=== PATIENT | female | born 1960 | race Caucasian/White ===

== ENCOUNTER 2020-07-02 11:15 | Emergency (ER) | payer MEDICAID, SELFPAY ==
[2020-07-02 11:15] VITALS: BP 132/61; PULSE 77; RESP 14; TEMP 36.3; O2SAT 94; BMI 20.9
--- NOTE | 2020-07-02 11:30 | HMH.EDUTC ---
[facility] [place] Impression: Otitis externa Qualifiers: Otitis externa type: unspecified type Chronicity: acute Laterality: left Qualified Code(s): H60.502 - Unspecified acute noninfective otitis externa, left ear Disposition: Home, Self-Care Condition on Discharge: Good Instructions: Otitis Externa, DI for Otitis Externa, How to Use Ear Drops Additional Instructions: Use the ear drops and take the oral antibiotics as directed. Follow up with your primary care physician. Take tylenol or ibuprofen for pain. GO TO THE ER FOR ANY WORSENING SYMPTOMS OR CONCERNS Prescriptions: Amoxicillin/Potassium Clav [Augmentin 875-125 Tablet] 1 tab PO Q12H 10 Days #20 tab Transmission Status: Received by [facility] Neomycin/Polymyxin B Sulf/Hc [Hjmdjvwt-Hfopnargk-BU Otic Susp 10mL] 3 drops EAR-RIGHT TID 7 Days #1 bottle Transmission Status: Received by [facility] Referrals: PCP,No [Primary Care Provider] - Time of Disposition: 11:37 Medical Decision Making - Medical Records Medical records reviewed: No: I reviewed the patient's medical records. - Francisco Inquiry Pt receiving controlled substance: No Vital Signs: 07/02/20 11:15 Temperature 97.3 F L Temperature Source Oral Pulse Rate [Right] 77 Respiratory Rate 14 Blood Pressure [Right Arm] 132/61 Blood Pressure Mean [Right Arm] 84 02 Sat by Pulse Oximetry 94 L [facility] [place] [place] - General Stated complaint: ear pain Time Seen by Provider: 07/02/20 11:31 - History of Present Illness Provider Complaint: She complains of right ear pain for the past 2 days. She denies any fever, chills, congestion and other symptoms. - Related Data Previous Rx's Medication Instructions Recorded Amoxicillin/Potassium Clav 1 tab PO Q12H 10 Days #20 tab 07/02/20 [Augmentin 875-125 Tablet] Neomycin/Polymyxin B Sulf/Hc 3 drops EAR-RIGHT TID 7 Days #1 07/02/20 [Gyenkens-Cnxbxkzez-DH Otic Susp bottle 10mL] Allergies Allergy/AdvReac Type Severity Reaction Status Date / Time No Known Allergies Allergy Verified 07/02/20 11:32 [facility] History - Hepatitis A Screen Attestation statement:: This patient has been screened for Hepatitis A risk factors. I have reviewed the patient's past medical history: Yes ROS Obtained: Yes All systems reviewed & no additional complaints - Constitutional Constitutional: Denies chills, Denies fever(s), Denies poor appetite, Reports malaise - Eyes Eyes: Denies eye discharge - ENT Ears, Nose, Mouth, and Throat: Reports as per HPI - Cardiovascular Cardiovascular: Denies chest pain - Respiratory Respiratory: Denies chest congestion, Denies cough - Gastrointestinal Gastrointestingal: Denies: abdominal pain, diarrhea, nausea, vomiting Physical Exam - General General appearance: alert, in no apparent distress - Head Head exam: atraumatic, normocephalic, normal inspection - Eye Eye exam: Present: normal appearance, PERRL, EOMI - ENT ENT exam: Present: mucous membranes moist, normal external ear exam - Expanded ENT Exam TM/Canal exam: Left TM: erythema, canal discharge, canal tenderness Mouth exam: Present: normal external inspection Teeth exam: Present: normal inspection Throat exam: Present: normal inspection - Neck Neck exam: Present: normal inspection, full ROM, trachea midline. Absent: meningismus, lymphadenopathy - Chest Chest inspection: Present: normal inspection, symmetric chest wall rise. Absent: tenderness - Respiratory Respiratory exam: Present: normal lung sounds bilaterally. Absent: respiratory distress - Cardiovascular Cardiovascular exam: Present: regular rate, normal rhythm. Absent: JVD - Abdominal Exam Abdominal exam: Present: soft, normal bowel sounds. Absent: distention, tenderness, guarding - Extremities Exam Extremities exam: Present: normal inspection, full ROM, normal capillary refill. Absent: calf tenderness - Back Exam Back exam: Present:
[2020-07-02 11:42] VITALS: BP 132/61; PULSE 77; RESP 14; TEMP 36.3; O2SAT 94
== END 2020-07-02 11:43 | disposition home or self-care (01) ==
PROVIDERS: Emergency Provider Nurse Practitioner Family
DX: H60.502 Unspecified acute noninfective otitis externa, left ear (principal)
CPT/HCPCS: 99202; G0463

== ENCOUNTER 2020-07-16 13:25 | Emergency (ER) | payer MEDICAID, SELFPAY ==
[2020-07-16 13:40] VITALS: BP 125/67; PULSE 68; RESP 20; TEMP 36.6; O2SAT 98; BMI 21.7
[2020-07-16 14:05] LABS: Apearance,Urine Clear (Clear); Color,Urine Yellow (Yellow)
[2020-07-16 14:06] LABS: Bilirubin,Urine Negative (Negative); Blood, Urine Negative (Negative); Glucose,Urine (UA) Negative (Negative); Ketones,Urine Negative (Negative); Protein,Urine Negative (Negative); UTC Leukocyte Esterase,Urine Negative (Negative); UTC Nitrate,Urine Negative (Negative); Urobilinogen,Urine 0.2 EU/dl (0.2)
--- NOTE | 2020-07-16 14:21 | HMH.EDUTC ---
[facility] [place] Clinical Impression: Yeast infection Disposition: Home, Self-Care Condition on Discharge: Good Instructions: Vaginal Yeast Infection, DI for Vaginal Yeast Infection Additional Instructions: Take the medication as directed. Use the topical medication as directed. Follow up with your primary care doctor. GO TO THE ER FOR ANY WORSENING SYMPTOMS Prescriptions: Fluconazole [Diflucan 150mg tab] 150 mg PO ONCE #1 tab Transmission Status: Received by [email or web address] Nystatin [Nystatin Cr 100,000 Units/GM 30GM] 1 applicatio TP BID 14 Days #1 tube Transmission Status: Received by [facility] Referrals: PCP,No [Primary Care Provider] - Time of Disposition: 14:24 Medical Decision Making - Medical Records Medical records reviewed: No: I reviewed the patient's medical records. - Francisco Inquiry Pt receiving controlled substance: No Vital Signs: 07/16/20 13:40 07/16/20 14:28 Temperature 97.8 F 97.8 F Temperature Source Temporal Artery Scan Pulse Rate 68 Pulse Rate [Right Brachial] 68 Respiratory Rate 20 20 Blood Pressure 125/67 Blood Pressure [Right Arm] 125/67 Blood Pressure Mean [Right Arm] 86 Blood Pressure Source [Right Arm] Automatic Cuff 02 Sat by Pulse Oximetry 98 Oxygen Delivery Method Room Air - Lab Data Lab Results 07/16/20 14:04: Urine Color Yellow, Urine Appearance Clear, Urine pH 6.0, Ur Specific [place] 1.010, Urine Protein Negative, Urine Glucose (UA) Negative, Urine Ketones Negative, Urine Blood Negative, Urine Nitrate Negative, Urine Bilirubin Negative, Urine Urobilinogen 0.2, Ur Leukocyte Esterase Negative [facility] [place] - General Stated complaint: Burning w/urinating Time Seen by Provider: 07/16/20 14:21 Mode of Arrival: Ambulatory Source of Information: Patient Limitations: No Limitations Description of Symptoms (Recalled from Triage Doc. by RN): PATIENT C/O URINARY HESISTANCY AND BURNING WITH URINATION. SHE REPORTS IT BEGAN AFTER SHE STARTED AUGMENTIN FOR EAR INFECTION APPROX 2 WEEKS AGO HEENT Symptoms (Recalled from RN notes): No Resp Symptoms (Recalled from RN notes): No Skin Symptoms (Recalled from RN notes): No MS Symptoms (Recalled from RN notes): No Functional Status (Recalled from RN notes): WNL - History of Present Illness Provider Complaint: She states that she has burning with urination and a rash between her legs since she finished the augmentin that was prescribed here for otitis media about 2 weeks ago. - Related Data Previous Rx's Medication Instructions Recorded Amoxicillin/Potassium Clav 1 tab PO Q12H 10 Days #20 tab 07/02/20 [Augmentin 875-125 Tablet] Neomycin/Polymyxin B Sulf/Hc 3 drops EAR-RIGHT TID 7 Days #1 07/02/20 [Jfqxzhei-Irhmwxwuy-DJ Otic Susp bottle 10mL] Fluconazole [Diflucan 150mg tab] 150 mg PO ONCE #1 tab 07/16/20 Nystatin [Nystatin Cr 100,000 1 applicatio TP BID 14 Days #1 tube 07/16/20 Units/GM 30GM] Allergies Allergy/AdvReac Type Severity Reaction Status Date / Time No Known Allergies Allergy Verified 07/02/20 11:32 - Worker's Comp Is this a Worker's Comp case?: No H History - Hepatitis A Screen Drug use history?: No High risk sexual behaviors?: No History of sexually transmitted infection?: No Currently employed?: No Childcare worker?: No Do you have indoor plumbing?: Yes Do you have electricity?: Yes Attestation statement:: This patient has been screened for Hepatitis A risk factors. I have reviewed the patient's past medical history: Yes - Social History Alcohol Intake: never Occupational Status: other ROS Obtained: Yes All systems reviewed & no additional complaints - Constitutional Constitutional: Denies chills, Denies fever(s) - Eyes Eyes: Reports system reviewed and no additional complaints, except as docu - ENT Ears, Nose, Mouth, and Throat: Denies sore throat - Cardiovascular Cardiovascular: Reports system reviewed and no addit
[2020-07-16 14:28] VITALS: BP 125/67; PULSE 68; RESP 20; TEMP 36.6; O2SAT 98
== END 2020-07-16 14:30 | disposition home or self-care (01) ==
PROVIDERS: Emergency Provider Nurse Practitioner Family
DX: B37.3 Candidiasis of vulva and vagina (principal); R30.0 Dysuria
CPT/HCPCS: 81003; 99202; G0463

== ENCOUNTER 2020-08-23 14:55 | Emergency (ER) | payer MEDICAID, SELFPAY ==
[2020-08-23 15:10] VITALS: BP 129/68; PULSE 64; RESP 18; TEMP 36.8; O2SAT 99; BMI 20.9
--- NOTE | 2020-08-23 15:21 | HMH.EDUTC ---
[facility] [place] Clinical Impression: Pharyngitis Qualifiers: Pharyngitis/tonsillitis etiology: unspecified etiology Qualified Code(s): J02.9 - Acute pharyngitis, unspecified Disposition: Home, Self-Care Condition on Discharge: Good Instructions: DI for Viral Pharyngitis Prescriptions: Fluticasone Propionate [Flonase Allergy Relief NS] 1 spray NS BID 10 Days #1 bot Transmission Status: Pending to [facility] predniSONE [Prednisone 20mg Tab] 20 mg PO BID 5 Days #10 tab Transmission Status: Pending to [facility] Azithromycin [Z-Yomi 250mg Tab] 250 mg PO DIRECTED #6 tab Transmission Status: Pending to [facility] Referrals: PCP,No [Primary Care Provider] - Time of Disposition: 15:24 Medical Decision Making - Francisco Inquiry Pt receiving controlled substance: No - Lab Data Lab results reviewed: Yes: I reviewed the patient's lab results. [facility] [place] - General Stated complaint: sore throat cough Time Seen by Provider: 08/23/20 15:21 - History of Present Illness Provider Complaint: Patient states that she has had sore throat X 2 weeks. Has nasal congestion and cough. No fever. No vomiting or diarrhea. Not sleeping well because she can't breathe thru her nose. Salt water gargles, chloraseptic spray haven't helped. Onset (ago): week(s) (2) Relieving factors: none Exacerbating factors: none Associated symptoms: denies other symptoms Treatments prior to arrival: other (salt water gargles, Chloraseptic) - Related Data Previous Rx's Medication Instructions Recorded Amoxicillin/Potassium Clav 1 tab PO Q12H 10 Days #20 tab 07/02/20 [Augmentin 875-125 Tablet] Neomycin/Polymyxin B Sulf/Hc 3 drops EAR-RIGHT TID 7 Days #1 07/02/20 [Asypomur-Cnfyiucey-QY Otic Susp bottle 10mL] Fluconazole [Diflucan 150mg tab] 150 mg PO ONCE #1 tab 07/16/20 Nystatin [Nystatin Cr 100,000 1 applicatio TP BID 14 Days #1 tube 07/16/20 Units/GM 30GM] Azithromycin [Z-Yomi 250mg Tab] 250 mg PO DIRECTED #6 tab 03/05/21 Fluticasone Propionate [Flonase 1 spray NS BID 10 Days #1 bot 08/23/20 Allergy Relief NS] predniSONE [Prednisone 20mg 20 mg PO BID 5 Days #10 tab 08/23/20 Tab] Allergies Allergy/AdvReac Type Severity Reaction Status Date / Time No Known Allergies Allergy Verified 07/02/20 11:32 [facility] History - Hepatitis A Screen Attestation statement:: This patient has been screened for Hepatitis A risk factors. I have reviewed the patient's past medical history: Yes - Social History Alcohol Intake: never Occupational Status: other ROS Obtained: Yes All systems reviewed & no additional complaints - ENT Ears, Nose, Mouth, and Throat: Reports sore throat Physical Exam - General General appearance: alert, in no apparent distress - Head Head exam: normocephalic - Eye Eye exam: Present: PERRL - ENT ENT exam: Present: TM's normal bilaterally - Expanded ENT Exam Nose exam: Absent: sinus tenderness Throat exam: Present: tonsillar erythema, other (PND) - Respiratory Respiratory exam: Present: normal lung sounds bilaterally - Cardiovascular Cardiovascular exam: Present: regular rate, normal rhythm - Neurological Exam Neurological exam: Present: alert, oriented X3 - Psychiatric Psychiatric exam: Present: normal affect, normal mood - Skin Skin exam: Present: warm, dry, intact
[2020-08-23 15:25] VITALS: BP 129/68; PULSE 64; RESP 18; TEMP 36.8; O2SAT 99
[2020-08-23 15:28] LABS: UTC Strep Screen (Rapid) Negative (Negative)
== END 2020-08-23 15:27 | disposition home or self-care (01) ==
PROVIDERS: Emergency Provider Physician Assistant
DX: J02.9 Acute pharyngitis, unspecified (principal)
CPT/HCPCS: 87880; 99202; G0463

== ENCOUNTER 2021-07-22 12:00 | Emergency (ER) | payer MEDICAID, SELFPAY ==
[2021-07-22 13:55] VITALS: BP 111/76; PULSE 82; RESP 18; TEMP 36.8; O2SAT 96; BMI 22.6
--- NOTE | 2021-07-22 14:08 | HMH.EDUTC ---
[facility] [place] Clinical Impression: URI (upper respiratory infection) Qualifiers: URI type: unspecified URI Qualified Code(s): J06.9 - Acute upper respiratory infection, unspecified Disposition: Home, Self-Care Condition on Discharge: Good Instructions: Sore Throat, DI for Sinusitis Additional Instructions: ? Start antibiotic today. Be sure to complete entire prescription even if feeling better *Monitor Temp, Over the counter Motrin or Tylenol as directed/as needed Tylenol every 4 hours and Motrin every 6 hours (as long as your family doctor has told you that you can take it) for fever or pain. and straight to ER if unable to lower temp less than 101.0 after medication given *Warm salt water gargles may help to soothe the throat *Throat Lozenges *Warm fluids like tea with honey may help to soothe the throat *Sleep elevated *Humidifier/Vaporizer ? Monitor temp. Tylenol every 4 hours as needed and / or ibuprofen every 6 hours as needed ( As long as your primary care physician has told you that it ok to take both. For fever/aches/pains ER if no less than 101 despite Tylenol or Motrin ? Humidifier/vaporizer or hot steamy shower *Tessalon Perles will not cause drowsiness but use at bedtime to help stop cough so that you may get some rest. *Start steroid today. Helps with inflammation therefore, cough and wheezing. Follow directions on the package. Reviewed side effects. Patient reports taking them before. Follow up IMMEDIATELY for new or worsening of symptoms OR no noticeable improvement over the next 48-72 hours. 911 immediately for any life threatening symptoms such as chest pain or difficulty breathing Prescriptions: Benzonatate [Benzonatate 100mg cap] 100 mg PO Q8HP PRN #15 cap PRN Reason: Cough Transmission Status: P[facility] to [facility] predniSONE [Deltasone 10mg tablet] 10 mg PO BID 5 Days #10 tab Transmission Status: Pending to [facility] Azithromycin [Z-Yomi 250mg Tab] 250 mg PO DIRECTED #6 tab Transmission Status: Pending to [facility] Referrals: Provider,Referral, MD [Primary Care Provider] - As needed Time of Disposition: 14:12 Medical Decision Making - Francisco Inquiry Pt receiving controlled substance: No Francisco was queried for this patient: No Vital Signs: 07/22/21 13:55 Temperature 98.2 F Temperature Source Oral Pulse Rate [Right Brachial] 82 Respiratory Rate 18 Blood Pressure [Right Arm] 111/76 Blood Pressure Mean [Right Arm] 87 Blood Pressure Source [Right Arm] Automatic Cuff Blood Pressure Position [Right Arm] Sitting 02 Sat by Pulse Oximetry 96 Oxygen Delivery Method Room Air Orders (Tests/Meds): ORDERS Category Date Time Status Covid-19 Nasal PCR ([facility]) Routine Lab 07/22/21 13:53 Ordered Rapid Strep Scrn Group A [Strep Scrn Group A (Rapid)] Lab 07/22/21 13:53 Ordered Stat [facility] [place] - General Stated complaint: OLIVAS, congestion, soa, sore throat Time Seen by Provider: 07/22/21 14:08 Mode of Arrival: Ambulatory Source of Information: Patient Limitations: No Limitations Description of Symptoms (Recalled from Triage Doc. by RN): PATIENT C/O SORE THROAT, RUNNY NOSE, AND PRODUCTIVE X 3 DAYS HEENT Symptoms (Recalled from RN notes): Yes Resp Symptoms (Recalled from RN notes): Yes Skin Symptoms (Recalled from RN notes): No MS Symptoms (Recalled from RN notes): No Functional Status (Recalled from RN notes): WNL - History of Present Illness Provider Complaint: Patient states that she has been having nasal congestion, sore throat drainage in the back of her throat and cough for a couple days States that today she woke and could barely talk States that she wanted to get seen and treated before it got too bad - Related Data Previous Rx's Medication Instructions Recorded Azithromycin [Z-Yomi 250mg Tab] 250 mg PO DIRECTED #6 tab 07/22/21 Benzonatate [Benzonatate 100mg 100 mg PO Q8HP PRN #15 cap 07/22/21 cap] predniSONE [Deltasone
[2021-07-22 14:18] VITALS: BP 111/76; PULSE 82; RESP 18; TEMP 36.8; O2SAT 96
[2021-07-22 14:32] LABS: Strep Scrn Group A (Rapid) Negative (Negative)
== END 2021-07-22 14:25 | disposition home or self-care (01) ==
PROVIDERS: Emergency Provider Nurse Practitioner
DX: J06.9 Acute upper respiratory infection, unspecified (principal); Z20.822 Contact with and (suspected) exposure to COVID-19
CPT/HCPCS: 87430; 99203; C9803; G0463; U0003; U0005

== ENCOUNTER → 2021-09-08 16:00 | Outpatient (CLI) | payer MEDICAID, SELFPAY ==
[2021-09-08 18:16] LABS: Basophils # 0.1 K/mm3 (0-0.2); Eosinophils # 0.1 K/mm3 (0.0-0.4); Eosinophils % 1.3 % (0.1-12.0); Hematocrit 42.3 % (37.0-47.0); Lymphocytes # 2.3 K/mm3 (0.7-4.5); Lymphocytes % 35.7 % (10-50); Mean Corpuscular HGB Conc 33.1 g/dL (31.8-35.4); Mean Corpuscular Hemoglobin 32.5 pg (27.0-31.2); Mean Corpuscular Volume 98.3 fl (81-99); Mean Platelet Volume 8.1 fl (7.4-10.4); Monocytes # 0.3 K/mm3 (0.1-1.0); Monocytes % 4.9 % (1.7-9.3); Neutrophils # 3.7 K/mm3 (1.8-7.8); Neutrophils % 57.2 % (37.0-80.0); Platelet Count 371 K/mm3 (142-424); Red Blood Count 4.31 M/mm3 (4.20-5.40); Red Cell Distribution Width 12.6 % (11.5-17.5); White Blood Count 6.5 K/mm3 (4.8-10.8)
[2021-09-08 19:54] LABS: Alanine Aminotransferase 21 U/L (12-78); Albumin Level 4.6 g/dl (3.5-5.0); Albumin/Globulin Ratio 1.8 (1.1-1.8); Alkaline Phosphatase 86 U/L (38-126); Anion Gap 13.5 mEq/L (5-15); Aspartate Amino Transferase 32 U/L (14-36); Bilirubin,Total 0.4 mg/dl (0.2-1.3); Blood Urea Nitrogen 12 mg/dl (7-17); Calcium 9.5 mg/dl (8.4-10.2); Carbon Dioxide 22 mmol/L (22.0-30.0); Chloride 105 mmol/L (98-107); Chol/HDL Ratio 5.6 (1-3.5); Cholesterol 284 mg/dl (140-200); Estimated Glomerular Filt Rate 125 ml/min (>60); GFR (African American) 151 ML/MIN (>60); Globulin 2.6 g/dL (1.3-3.2); Glucose 91 mg/dl (74-100); HDL Cholesterol 51 mg/dl (40-60); Potassium 4.5 mmoL/L (3.5-5.1); Sodium 136 mmol/L (136-145); Total Protein,Serum 7.2 g/dl (6.3-8.2); Triglycerides 218 mg/dl (30-150); VLDL Cholesterol 44 mg/dL (0-40)
[2021-09-08 20:13] LABS: Free T4 (Free Thyroxine) 0.83 ng/dl (0.78-2.19)
[2021-09-08 20:15] LABS: 25-OH Vitamin D, Total 87.1 ng/mL (30-100)
== END ==
PROVIDERS: Visit Provider Emergency Medicine
DX: R53.83 Other fatigue (principal); E55.9 Vitamin D deficiency, unspecified
CPT/HCPCS: 80053; 80061; 82306; 84439; 84443; 85025

== ENCOUNTER 2021-10-31 15:14 | Emergency (ER) | payer MEDICAID, SELFPAY ==
--- NOTE | 2021-10-31 15:29 | XR_ITS ---
FINAL REPORT CLINICAL HISTORY: PAIN FINDINGS: LEFT ANKLE: Three views of the left ankle were obtained. There is no acute fracture or dislocation. The joint spaces and mortise are intact. There is no soft tissue abnormality. IMPRESSION: No acute process. Reviewed, Interpreted and Dictated by Tano Yanez III, MD Transcribed by Brandon Navarro Authenticated by Tano Yanez III, MD on 10/31/2021 04:33:03 PM [facility]
[2021-10-31 16:35] VITALS: BP 130/72; PULSE 64; RESP 18; TEMP 36.7; O2SAT 99; BMI 22.1
--- NOTE | 2021-10-31 17:04 | HMH.EDUTC ---
[facility] [place]ression: Left foot pain Left ankle pain Qualifiers: Chronicity: acute Qualified Code(s): M25.572 - Pain in left ankle and joints of left foot Disposition: Home, Self-Care Condition on Discharge: Good Instructions: DI for Ankle Pain, DI for Foot Pain Additional Instructions: Rest the extremity, Wear the vik wrap for compression, Elevate the extremity as tolerated while you are resting. Follow up with Dr. Murray (podiatry). I put in a referral but you need to call her office and schedule an appointment. Follow up with your regular doctor. GO TO THE ER FOR ANY WORSENING SYMPTOMS Prescriptions: methylPREDNISolone [Medrol] 4 mg PO DIRECTED 6 Days #21 packet Transmission Status: Received by [facility] Referrals: Fei Gonsalez MD [Primary Care Provider] - Time of Disposition: 17:33 Medical Decision Making - Medical Records Medical records reviewed: No: I reviewed the patient's medical records. - Francisco Inquiry Pt receiving controlled substance: No Vital Signs: 10/31/21 16:35 10/31/21 17:19 Temperature 98.0 F 98.0 F Temperature Source Oral Pulse Rate 64 Pulse Rate [Left Brachial] 64 Respiratory Rate 18 18 Blood Pressure 130/72 Blood Pressure [Left Arm] 130/72 Blood Pressure Mean [Left Arm] 91 Blood Pressure Source [Left Arm] Automatic Cuff Blood Pressure Position [Left Arm] Sitting 02 Sat by Pulse Oximetry 99 Oxygen Delivery Method Room Air [facility] [place] - General Stated complaint: left ankle swelling Time Seen by Provider: 10/31/21 17:04 - History of Present Illness Provider Complaint: She states that she has had left foot and ankle pain and mild swelling for the past 1 week. She denies any known injury. Walking and bearing weight on the foot makes it worse. Nothing really helps it other than sitting down and resting it. - Related Data Home Medications Medication Instructions Recorded Confirmed ascorbic acid (vitamin C) 100 mg 100 mg PO DAILY 09/08/21 09/08/21 tablet cholecalciferol (vitamin D3) 50 50 mcg PO DAILY 09/08/21 09/08/21 mcg (2,000 unit) capsule mecobalamin (vitamin B12) 1,000 1,000 mcg PO DAILY 09/08/21 09/08/21 mcg chewable tablet omega 6-run-udw-fish oil 300 1 cap PO DAILY 09/08/21 09/08/21 mg-1,000 mg capsule vitamin A palmitate 10,000 unit 10,000 unit PO DAILY 09/08/21 09/08/21 tablet vitamin E (dl, acetate) 450 mg 450 mg PO DAILY 09/08/21 09/08/21 (1,000 unit) capsule Previous Rx's Medication Instructions Recorded atorvastatin 10 mg tablet 10 mg PO HS #90 tab 09/16/21 methylPREDNISolone [Medrol] 4 mg PO DIRECTED 6 Days #21 10/31/21 packet Allergies Allergy/AdvReac Type Severity Reaction Status Date / Time No Known Allergies Allergy Verified 09/08/21 16:04 [facility] History - Hepatitis A Screen Attestation statement:: This patient has been screened for Hepatitis A risk factors. I have reviewed the patient's past medical history: Yes - Social History Smoking Status: Never smoker Alcohol Intake: never Substance Use Type: denies use Occupational Status: retired Family Hx:: Heart Attack, Hypertension, Cancer ROS Obtained: Yes All systems reviewed & no additional complaints - Constitutional Constitutional: Reports as per HPI - Eyes Eyes: Reports eye discharge - ENT Ears, Nose, Mouth, and Throat: Denies dizziness, Denies otalgia, Denies sinus pressure, Denies sore throat - Cardiovascular Cardiovascular: Denies chest pain - Respiratory Respiratory: Denies chest congestion, Denies cough, Denies dyspnea, Denies stridor, Denies wheezing - Gastrointestinal Gastrointestingal: Denies: abdominal pain, diarrhea, nausea, vomiting - Musculoskeletal Musculoskeletal: Reports as per HPI - Integumentary/Breasts Skin/Breast: Denies redness, Denies rash, Denies wounds Physical Exam - General General appearance: alert, in no apparent distress - Head Head
[2021-10-31 17:19] VITALS: BP 130/72; PULSE 64; RESP 18; TEMP 36.7; O2SAT 99
== END 2021-10-31 17:39 | disposition home or self-care (01) ==
PROVIDERS: Emergency Provider Nurse Practitioner Family; PCP Emergency Medicine
DX: M79.672 Pain in left foot (principal); M25.572 Pain in left ankle and joints of left foot
CPT/HCPCS: 73610; 99212; G0463

== ENCOUNTER → 2021-12-17 11:00 | Outpatient (CLI) | payer MEDICAID, SELFPAY ==
--- NOTE | 2021-12-17 11:01 | MR_ITS ---
FINAL REPORT CLINICAL HISTORY: left foot pain and swelling, no injury FINDINGS: Multiplanar MR imaging of the left foot was performed without contrast. Mild degenerative changes are present. There is an accessory navicular. 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 There is no evidence of a fracture. The flexor and extensor tendons are intact. No ligamentous injury is identified. The musculature is intact. The plantar aponeurosis is intact. No soft tissue mass or cyst is identified. 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 Reviewed, Interpreted and Dictated by Tano Yanez III, MD Transcribed by Tere Medeiros Authenticated and [facility]
== END ==
PROVIDERS: PCP Emergency Medicine; Visit Provider Emergency Medicine
DX: M25.572 Pain in left ankle and joints of left foot (principal); M79.672 Pain in left foot
CPT/HCPCS: 73718

== ENCOUNTER 2022-04-02 11:51 | Emergency (ER) | payer MEDICAID, SELFPAY ==
--- NOTE | 2022-04-02 13:05 | EXP.UTC ---
Discharge Plan Disposition Patient Disposition: Home, Self-Care Condition: Good Prescriptions Prescriptions: New amoxicillin [amoxicillin] 875 mg tablet 875 mg PO Q12H Qty: 20 0RF benzonatate [benzonatate] 100 mg capsule 100 mg PO TIDP PRN (Reason: Cough) Qty: 30 0RF methylprednisolone 4 mg Tablets,Dose Pack 4 mg PO DIRECTED Qty: 21 0RF fluconazole [Diflucan] 150 mg tablet 150 mg PO ONCE Qty: 1 2RF Referrals Follow up/Referrals: Provider,Referral, MD [Primary Care Provider] - See instructions Activity Restrictions/Add. Instructions Additional Instructions/Restrictions: Drink plenty of fluids. Take tylenol or ibuprofen for pain or fever. Take the medications as directed. Follow up with your regular doctor. GO TO THE ER FOR ANY WORSENING SYMPTOMS Clinical Impressions Clinical Impression: Strep throat Instructions Patient Instructions: Strep Throat, DI for Strep Throat Discharge ED Provider: Sammy Pastrana [facility] [place] HPI General Stated complaint: Sore throat, ear pain Time Seen by Provider: 04/02/22 13:05 History of Present Illness Provider Complaint: She states that she has had a sore throat and felt bad for the past 3 days. Related Data Previous Rx's Medication Instructions Recorded amoxicillin 875 mg tablet 875 mg PO Q12H #20 tabs 04/02/22 benzonatate 100 mg capsule 100 mg PO TIDP PRN Cough #30 caps 04/02/22 fluconazole 150 mg tablet 150 mg PO ONCE #1 tab 04/02/22 (Diflucan) methylprednisolone 4 mg tablets in 4 mg PO DIRECTED #21 tabs 04/02/22 a dose pack Allergies Allergy/AdvReac Type Severity Reaction Status Date / Time No Known Allergies Allergy Verified 11/07/21 14:38 [facility] Medical History No significant past medical history Social History Smoking Status: Never smoker alcohol intake: never substance use type: denies use current occupational status: retired Travel in the last 8 weeks: None ROS Obtained: Yes All systems reviewed & no additional complaints except as documented Constitutional Constitutional: Reports chills and Reports fever(s) Eyes Eyes: Denies eye discharge ENT Ears, Nose, Mouth, and Throat: Reports as per HPI Cardiovascular Cardiovascular: Denies chest pain Respiratory Respiratory: Denies chest congestion and Reports cough Gastrointestinal Gastrointestingal: Reports nausea; Denies abdominal pain, constipation, cramping, diarrhea or vomiting Musculoskeletal Musculoskeletal: Denies arthralgias Integumentary/Breasts Skin/Breast: Denies rash Neurologic Neurologic: Denies paresthesias Physical Exam General General appearance: alert and in no apparent distress Head Head exam: atraumatic, normocephalic and normal inspection Eye Eye exam: Present normal appearance, PERRL and EOMI ENT ENT exam: Present mucous membranes moist and normal external ear exam Expanded ENT Exam TM/Canal exam: Bilateral TM: erythema and bulging Nose exam: Absent sinus tenderness Mouth exam: Present normal external inspection; Absent drooling Teeth exam: Present normal inspection Throat exam: Present tonsillar erythema, tonsillomegaly and tonsillar exudate Neck Neck exam: Present normal inspection, full ROM and trachea midline; Absent tenderness, meningismus or lymphadenopathy Chest Chest inspection: Present normal inspection and symmetric chest wall rise; Absent tenderness Respiratory Respiratory exam: Present normal lung sounds bilaterally; Absent respiratory distress, wheezes or stridor Cardiovascular Cardiovascular exam: Present regular rate and normal rhythm; Absent systolic murmur or diastolic murmur Abdominal Exam Abdominal exam: Present soft and normal bowel sounds; Absent distention, tenderness, guarding, rebound or rigidity Extremities Exam Extremities exam: Present normal inspection and normal capillary refill; Absent calf
[2022-04-02 13:10] VITALS: BP 100/69; PULSE 82; RESP 20; TEMP 36.9; O2SAT 97; BMI 20.9
[2022-04-02 13:45] LABS: UTC Strep Screen (Rapid) Positive (Negative)
[2022-04-02 13:46] VITALS: BP 100/69; PULSE 82; RESP 20; TEMP 36.9; O2SAT 97
== END 2022-04-02 13:48 | disposition home or self-care (01) ==
PROVIDERS: Emergency Provider Nurse Practitioner Family
DX: J02.0 Streptococcal pharyngitis (principal)
CPT/HCPCS: 87880; 99212; G0463

== ENCOUNTER 2022-10-27 09:44 | Emergency (ER) | payer MEDICAID, SELFPAY ==
[2022-10-27 10:40] VITALS: BP 119/60; PULSE 79; RESP 17; TEMP 36.6; O2SAT 98; BMI 26.7
--- NOTE | 2022-10-27 11:00 | EXP.UTC ---
Discharge Plan Disposition Patient Disposition: Home, Self-Care Condition: Good Prescriptions Prescriptions: New benzonatate 100 mg capsule 100 mg PO TID PRN (Reason: cough) Qty: 20 0RF amoxicillin-pot clavulanate 875-125 mg Tablet 1 tab PO Q12H Qty: 30 0RF prednisone [prednisone] 20 mg tablet 20 mg PO BID 5 Days Qty: 10 0RF Referrals Follow up/Referrals: Provider,Referral, MD [Primary Care Provider] - See instructions Activity Restrictions/Add. Instructions Additional Instructions/Restrictions: *Monitor Temp, Over the counter Motrin or Tylenol as directed/as needed Tylenol every 4 hours and Motrin every 6 hours (as long as your family doctor has told you that you can take it) for fever or pain. and straight to ER if unable to lower temp less than 101.0 after medication given *Warm salt water gargles may help to soothe the throat *Throat Lozenges? *Warm fluids like tea with honey may help to soothe the throat? *Sleep elevated *Humidifier/Vaporizer Your throat swab was sent for culture. Those results are typically sent to your primary care. Be sure to follow up in 2-3 days with your family doctor/primary care physician if no improvement so they can review those result and treat if necessary. If you don?t have a primary care doctor, I recommend you get one but in the mean time, you will have to return to a walk in clinic Follow up IMMEDIATELY for new or worsening symptoms or no Noticeable improvement over the next 48-72 hours. 911 for difficulty breathing or swallowing Clinical Impressions Clinical Impression: Sinusitis Instructions Patient Instructions: DI for Sinusitis, Sinusitis, Cough Discharge ED Provider: Nydia Sanchez [facility] [place] General Stated complaint: sore throat, ear pain, cough, runny nose Mode of Arrival: Ambulatory Source of Information: Patient Limitations: No Limitations Time Seen by Provider: 10/27/22 11:00 Description of Symptoms (Recalled from Triage Doc. by RN): PATIENT C/O SORE THROAT, COUGH, AND RUNNY NOSE X 2 WEEKS HEENT Symptoms (Recalled from RN notes): Yes Resp Symptoms (Recalled from RN notes): Yes Skin Symptoms (Recalled from RN notes): No MS Symptoms (Recalled from RN notes): No Functional Status (Recalled from RN notes): WNL History of Present Illness Provider Complaint: Patient states that she has been having cough, sore throat, nasal congestion and headache for about 2 weeks States that she thought it would get better but it hasnt only got worse and she feels like it is trying to move into her her chest so she came in Related Data Previous Rx's Medication Instructions Recorded amoxicillin 875 mg-potassium 1 tab PO Q12H #30 tabs 10/27/22 clavulanate 125 mg tablet benzonatate 100 mg capsule 100 mg PO TID PRN cough #20 caps 10/27/22 prednisone 20 mg tablet 20 mg PO BID 5 days #10 tabs 10/27/22 Allergies Allergy/AdvReac Type Severity Reaction Status Date / Time No Known Allergies Allergy Verified 11/07/21 14:38 Worker's Comp Is this a Worker's Comp case?: No [facility] Disclaimer: The information contained in this section may have been updated after the patient was seen, as this information can be updated by other users. Medical History No significant past medical history Social History Smoking Status: Never smoker alcohol intake: never substance use type: denies use current occupational status: retired Travel in the last 8 weeks: None ROS Obtained: Yes All systems reviewed & no additional complaints except as documented and Yes Systems reviewed as appropriate & no additional complaints except as documented Constitutional Constitutional: Reports system reviewed and no additional complaints, except as documented and Reports as per HPI ENT Ears, Nose, Mouth, and Throat: Reports system reviewed and no addit
[2022-10-27 11:10] LABS: UTC Strep Screen (Rapid) Negative (Negative)
[2022-10-27 11:15] VITALS: BP 119/60; PULSE 79; RESP 17; TEMP 36.6; O2SAT 98
== END 2022-10-27 11:17 | disposition home or self-care (01) ==
PROVIDERS: Emergency Provider Nurse Practitioner
DX: J01.90 Acute sinusitis, unspecified (principal); R05.9 Cough, unspecified
CPT/HCPCS: 87880; 99212; 99214; G0463

== ENCOUNTER 2023-11-22 09:35 | Emergency (ER) | payer MEDICARE, MEDICAID, SELFPAY ==
[2023-11-22 10:20] VITALS: BP 139/75; PULSE 72; RESP 20; TEMP 36.6; O2SAT 98; BMI 24.1
--- NOTE | 2023-11-22 10:26 | EXP.UTC ---
Discharge Plan Disposition Patient Disposition: Home, Self-Care Condition: Good Prescriptions Prescriptions: New amoxicillin-pot clavulanate 875-125 mg tablet 1 tab PO Q12H 10 Days Qty: 20 0RF Referrals Follow up/Referrals: Provider,Referral, [Primary Care Provider] - See instructions Activity Restrictions/Add. Instructions Additional Instructions/Restrictions: Keep follow up appointment with ENT. Clinical Impressions Clinical Impression: Acute left otitis media, Impacted cerumen of right ear Instructions Patient Instructions: DI for Cerumen Impaction, DI for Otitis Externa, Middle Ear Infection Discharge ED Provider: Leigh Ann Adams [facility] General Stated complaint: ear pain/itching/swelling left ear Time Seen by Provider: 11/22/23 10:26 History of Present Illness Provider Complaint: Pt reports that she has had left ear pain and right ear irritation for the past few days. She states that she has an appointment with ENT due to ongoing issues. Related Data Previous Rx's Medication Instructions Recorded amoxicillin 875 mg-potassium 1 tab PO Q12H 10 days #20 tabs 11/22/23 clavulanate 125 mg tablet Allergies Allergy/AdvReac Type Severity Reaction Status Date / Time No Known Allergies Allergy Verified 11/07/21 14:38 [facility] Disclaimer: The information contained in this section may have been updated after the patient was seen, as this information can be updated by other users. Medical History No significant past medical history Social History Smoking Status: Never smoker alcohol intake: never substance use type: denies use current occupational status: retired Travel in the last 8 weeks: None ROS Obtained: Yes All systems reviewed & no additional complaints except as documented Constitutional Constitutional: Reports system reviewed and no additional complaints, except as documented Eyes Eyes: Reports system reviewed and no additional complaints, except as documented ENT Ears, Nose, Mouth, and Throat: Reports system reviewed and no additional complaints, except as documented and Reports otalgia Cardiovascular Cardiovascular: Reports system reviewed and no additional complaints, except as documented Respiratory Respiratory: Reports system reviewed and no additional complaints, except as documented Gastrointestinal Gastrointestingal: Reports system reviewed and no additional complaints, except as documented Genitourinary Female Genitourinary: Reports system reviewed and no additional complaints, except as documented Musculoskeletal Musculoskeletal: Reports system reviewed and no additional complaints, except as documented Integumentary/Breasts Skin/Breast: Reports system reviewed and no additional complaints, except as documented Neurologic Neurologic: Reports system reviewed and no additional complaints, except as documented Endocrine Endocrine: Reports system reviewed and no additional complaints, except as documented Hematologic/Lymphatic Henatologic/Lymphatic: Reports system reviewed and no additional complaints, except as documented Allergic/Immunologic Allergic/Immunologic: Reports system reviewed and no additional complaints, except as documented Physical Exam General General appearance: alert and in no apparent distress Head Head exam: atraumatic and normocephalic Eye Eye exam: Present normal appearance Expanded ENT Exam External ear exam: Present external tenderness TM/Canal exam: Left TM: canal discharge (purulent drainage in canal with swelling. Unable to visualize TM.) and Right TM: cerumen impaction Nasal speculum exam: Bilateral: normal Mouth exam: Present normal external inspection Teeth exam: Present normal inspection Throat exam: Present normal inspection Neck Neck exam: Present normal inspection Chest Chest inspection: Present normal inspection and symmetric chest wall rise Respiratory Respiratory exam: Present normal lung sounds bilaterally Cardiovascular Cardiovascular exam: Present regular rate and normal rhythm Abdominal Exam Abdominal exam: Present soft Extremities Exam Extremities exam: Present normal inspection Back Exam Back exam: Present normal inspection Neurological Exam Neurological exam: Present alert and oriented X3 Psychiatric Psychiatric exam: Present normal affect and normal mood Skin Skin exam: Present warm, dry and intact Lymphatic Lymphatic Findings: no adenopathy Medical Decision Making Francisco Inquiry Pt receiving controlled substance: No Francisco was queried for this patient: No
[2023-11-22 10:48] VITALS: BP 139/75; PULSE 72; RESP 20; TEMP 36.6; O2SAT 98
== END 2023-11-22 10:52 | disposition home or self-care (01) ==
PROVIDERS: Emergency Provider Nurse Practitioner Family
DX: H66.92 Otitis media, unspecified, left ear (principal); H92.02 Otalgia, left ear; H61.21 Impacted cerumen, right ear
CPT/HCPCS: 99212; 99214; G0463